=== PATIENT | female | born 1985 | race Caucasian/White ===

== ENCOUNTER 2020-11-11 09:05 | Emergency (ER) | payer OTHER ==
[~2020-11-11] VITALS: Ht 157.5 cm; Wt 59.0 kg
--- NOTE | 2020-11-11 09:30 | NUR ---
L ARM NUMBNESS, L THUMB/L 5TH FINGER NUMBNESS X 3 DAYS. NOW STATES NUMBNESS TO LLE. DENIES ANY INJURIES. PATIENT A/OX4, ALSO C/O NECK PAIN, BREATHING EVEN AND UNLABORED, VERBALLY RESPONSIVE. NO S/SX OF STROKE AT THIS TIME. PLACED ON THE CHANNEL LIP WETTER.
--- NOTE | 2020-11-11 09:45 | NUR ---
IV LINE ESTABLIDHED, BLOOD DRAWN AND SENT TO LAB.
[2020-11-11] MEDS ORDERED: IV NS 0.9% 500 ML BAG IV ONE (10:00)
--- NOTE | 2020-11-11 10:00 | NUR ---
PATIENT TAKEN TO CT. SIGNED A WAIVER.
[2020-11-11 10:01] LABS: BASOPHILS # (AUTO) 0.1 K/uL (0.0-0.2); BASOPHILS % (AUTO) 0.8 % (0.0-2.0); EOSINOPHILS % (AUTO) 1.2 % (0.0-6.0); HEMATOCRIT 44 % (33-45); HEMOGLOBIN 14.9 g/dL (11.5-14.8); LYMPHOCYTES # (AUTO) 1.3 K/uL (0.8-4.8); LYMPHOCYTES % (AUTO) 19.6 % (20.0-44.0); MEAN CORPUSCULAR HGB CONC 34 g/dl (31.0-36.0); MEAN CORPUSCULAR VOLUME 95 fL (82-100); MONOCYTES # (AUTO) 0.3 K/uL (0.1-1.30); MONOCYTES % (AUTO) 4.7 % (2.0-12.0); NEUTROPHILS % (AUTO) 73.7 % (43.0-81.0); PLATELET COUNT (AUTO) 217 K/uL (150-450); WHITE BLOOD COUNT (AUTO) 6.8 K/uL (4.3-11.0)
[2020-11-11 10:03] LABS: CALCIUM, SERUM 8.4 mg/dL (8.5-10.1); CARBON DIOXIDE 25 mmol/L (21-32); CHLORIDE 104 mmol/L (98-107); CREATININE 0.7 mg/dL (0.6-1.3); GLUCOSE 83 mg/dL (74-106); POTASSIUM 3.6 mmol/L (3.5-5.1); SODIUM SERUM 137 mmol/L (136-145); UREA NITROGEN, BLOOD 8 mg/dL (7-18)
[2020-11-11 10:09] LABS: ALANINE AMINOTRANSFERASE 22 U/L (12-78); ALBUMIN 3.8 g/dL (3.4-5.0); ALKALINE PHOSPHATASE 48 U/L (46-116); ASPARTATE AMINOTRANSFERASE 25 U/L (15-37); BILIRUBIN,DIRECT 0.1 mg/dL (0.0-0.2); BILIRUBIN,TOTAL 0.7 mg/dL (0.2-1.0); TOTAL PROTEIN, SERUM 7.8 g/dL (6.4-8.2)
[2020-11-11] MEDS ORDERED: KETOROLAC TROMETHAMINE INJ 30 MG/ML VIAL IV ONE ×2 (10:30→12:30)
[2020-11-11] MEDS ORDERED: DEXAMETHASONE 1 MG TABLET PO ONE (10:30)
[2020-11-11] MEDS ORDERED: HYDROCODONE/APAP 5/325MG TABLET PO ONE (10:30)
[2020-11-11] MEDS ORDERED: CYCLOBENZAPRINE 10 MG TABLET PO ONE (10:30)
[2020-11-11 10:32] LABS: CHOLESTEROL 194 mg/dL (<200); HDL CHOLESTEROL 63 mg/dL (40-60); LDL 113 mg/dL (0-99); TRIGLYCERIDES 72 mg/dL (30-150)
[2020-11-11] MEDS ORDERED: KETOROLAC TROMETHAMINE 15 MG/ML VIAL ONE ×2 (10:36→12:20)
[2020-11-11] MEDS ORDERED: HYDROCODONE/APAP 5/325MG TABLET ONE (10:37)
[2020-11-11] MEDS ORDERED: CYCLOBENZAPRINE 10 MG TABLET ONE (10:37)
[2020-11-11] MEDS ORDERED: DEXAMETHASONE 4 MG TABLET ONE (10:42)
--- NOTE | 2020-11-11 10:59 | NUR ---
PATIENT IS RESTING, NO DISTRESS NOTED. DR. RAPHAEL AT BEDSIDE.
--- NOTE | 2020-11-11 11:16 | NUR ---
TEXTED DR. PALENCIA FOR MRI APPROVAL.
[2020-11-11] MEDS ORDERED: ONDANSETRON HCL/PF 4 MG/2 ML VIAL IV ONE (13:30)
[2020-11-11] MEDS ORDERED: ONDANSETRON HCL/PF 4 MG/2 ML VIAL ONE ×2 (13:38→17:24)
--- NOTE | 2020-11-11 13:45 | NUR ---
MRI QUESTIONNAIRE DONE.
--- NOTE | 2020-11-11 14:52 | NUR ---
PATIENT TRANSFERRED TO MRI VIA WHEELCHAIR, IN STABLE CONDITION.
--- NOTE | 2020-11-11 15:18 | NUR ---
PATIENT CAME BACK FROM MRI.
--- NOTE | 2020-11-11 16:23 | NUR ---
DR. LEE SPEAKING WITH DR. CESPEDES.
--- NOTE | 2020-11-11 16:49 | NUR ---
DR. CESPEDES AT BEDSIDE TO EXPLAIN MRI RESULTS.
--- NOTE | 2020-11-11 17:15 | NUR ---
PATIENT AGREED TO GO TO [facility] FOR ADMISSION.
[2020-11-11] MEDS ORDERED: HYDROMORPHONE 1 MG/1 ML DISP.SYRIN ONE (17:21)
[2020-11-11] MEDS ORDERED: MORPHINE SULFATE INJ 2 MG/ML DISP.SYRIN ONE (17:24)
--- NOTE | 2020-11-11 17:27 | NUR ---
FAXED FACE SHEET AND CLINICALS TO [facility] [phone] AT [facility]
[2020-11-11] MEDS ORDERED: ONDANSETRON HCL/PF - ER 4 MG/2 ML VIAL IV ONE (17:30)
[2020-11-11] MEDS ORDERED: IV NS 0.9% 1,000 ML IV ONE (17:30)
[2020-11-11] MEDS ORDERED: MORPHINE SULFATE INJ 2 MG/ML DISP.SYRIN IV ONE (17:30)
--- NOTE | 2020-11-11 17:32 | NUR ---
DR. CESPEDES GAVE VERBAL ORDER TO GIVE DILAUDID 0.5MG. MEDICATION PULLED OUT AND WASTED WITH ANOTHER NURSE. THEN DR. CESPEDES CHANGED HIS MIND AND CANCELLED THE DILAUDID ORDER AND CHANGED IT TO MORPHINE INSTEAD. A TOTAL OF DILAUDID 1MG WASTED WITH GENER RN.
--- NOTE | 2020-11-11 18:00 | NUR ---
COVID SWAB SENT.
--- NOTE | 2020-11-11 18:21 | NUR ---
CALLED [facility] [phone] JOSH WILL FAX COVID RESULT TO [phone]
[2020-11-11 18:27] VITALS: BP 120/61
--- NOTE | 2020-11-11 19:04 | NUR ---
ACCEPTED BY DR. CAPONE, WAITING FOR BED ASSIGNMENT AT [facility]. COVID RESULT FAXED TO [facility].
--- NOTE | 2020-11-11 19:08 | NUR ---
SHANNA CALLED FROM [facility] PT ACCEPTED UNDER DR. LEE ROOM [id number] REPORT [phone].
--- NOTE | 2020-11-11 19:15 | NUR ---
CALLED TRANSPORT [facility] [phone]
--- NOTE | 2020-11-11 19:34 | NUR ---
REPORT GIVEN TO ANDREA TAYLOR AT [facility]
--- NOTE | 2020-11-11 19:44 | NUR ---
[facility] at bed isde to [facility] picker the pt
== END 2020-11-11 20:48 | disposition short-term general hospital (02) ==
LOC: ER 09:05
DX: M50.022 Cervical disc disorder at C5-C6 level with myelopathy (principal); R20.2 Paresthesia of skin; M48.02 Spinal stenosis, cervical region; E86.0 Dehydration; R11.0 Nausea; M25.78 Osteophyte, vertebrae; Z20.822 Contact with and (suspected) exposure to COVID-19
CPT/HCPCS: 36415; 71045; 72125; 72141; 80048; 80061; 80076; 82962; 84484; 85025; 85730; 87426; 93005; 96361; 96374; 96375; 96376; 99291; C9803; J1170; J1885 ×2; J2270; J2405 ×3; J7030; J7040; J8540